=== PATIENT | male | born 1970 | race African-American/Black ===

== ENCOUNTER 2016-09-30 17:43 | Emergency (ER) | payer MEDICAID, OTHER ==
[~2016-09-30] VITALS: Ht 182.9 cm; Wt 117.9 kg
[~2016-09-30 17:43] MED LIST: ACETAMINOPHEN-1 EAC1 ORAL; ALBUTEROL SULF8.5 GM INH; ASPIRIN-LOW81 MG ORAL; ATIVAN1 MG ORAL; ATORVASTATIN CA10 MG ORAL; BACITRACIN15 GM TOPIC; BACTRIM-DS1 EA ORAL; BENTYL10 MG ORAL; COLACE100 MG ORAL; COLCHICINE0.6 M1 PO; DICYCLOMINE HCL10 MG PO; FLONASE1 SPRAYS NASAL; IBUPROFEN600 MG ORAL; LISINOPRIL20 MG ORAL; METFORMIN HCL500 M1 ORAL; METOPROLOL TART25 MG ORAL; NORCO 5-325 TA1 EACH ORAL; ONDANSETRON ODT4 MG ORAL; PROMETHAZINE V237 ML ORAL; TESSALON PERLE100 M2 ORAL; TRAMADOL HCL50 MG ORAL; ZITHROMAX250 MG ORAL; ZOFRAN4 M1 ORAL; ZYRTEC10 MG ORAL
[2016-09-30] MEDS ORDERED: LORazepam Inj 2mg/ml 1ml IV ONE (18:30)
[2016-09-30] MEDS ORDERED: Famotidine 20 MG/ 2ML VIAL IVP ONE (18:30)
[2016-09-30] MEDS ORDERED: Morphine Sulfate 4mg/ml Inj IVP ONE (18:30)
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
[2016-09-30 18:50] LABS: BASOPHILS % (AUTO) 3.3 % (0.0-2.0); EOSINOPHILS % (AUTO) 0.9 % (0.0-3.0); LYMPHOCYTES % (AUTO) 36.8 % (20.0-45.0); MEAN CORPUSCULAR VOLUME 97 FL (80-99); MEAN PLATELET VOLUME 6.3 FL (6.5-10.1); MONOCYTES % (AUTO) 15.5 % (1.0-10.0); NEUTROPHILS % (AUTO) 43.5 % (45.0-75.0); PLATELET COUNT 271 K/UL (150-450); RED BLOOD COUNT 5.09 M/UL (4.70-6.10); RED CELL DISTRIBUTION WIDTH 14.6 % (11.6-14.8); WHITE BLOOD COUNT 8.1 K/UL (4.8-10.8)
[2016-09-30 18:59] LABS: ALANINE AMINOTRANSFERASE 40 U/L (3-41); ALBUMIN/GLOBULIN RATIO 1.1 (1.0-2.7); ALCOHOL 392 mg/dL; ANION GAP 18 (5-15); ASPARTATE AMINO TRANSFERASE 41 U/L (5-40); CALCIUM 8.5 mg/dL (8.6-10.2); CARBON DIOXIDE 24 mEQ/L (20-30); CHLORIDE 101 mEQ/L (98-107); CREATININE 1.2 mg/dL (0.7-1.2); GLOMERULAR FILTRATION RATE > 60 mL/min (>60); HEMOLYSIS 7; POTASSIUM 3.9 mEQ/L (3.4-4.9); SODIUM 143 mEQ/L (135-145); TOTAL PROTEIN 8.1 g/dL (6.6-8.7)
[2016-09-30 19:03] VITALS: BP 109/59
[2016-09-30] MEDS ORDERED: ATORVASTATIN CA80 MG ORAL (20:41)
[2016-09-30] MEDS ORDERED: LISINOPRIL5 MG ORAL (20:41)
[2016-09-30] MEDS ORDERED: IBUPROFEN600 MG ORAL (20:41)
[2016-09-30 21:03] VITALS: BP 112/76
[2016-09-30] MEDS ORDERED: Zolpidem 5mg tab ORAL PRN (22:00)
[2016-09-30] MEDS ORDERED: LORazepam Inj 2mg/ml 1ml IV PRN (22:00)
[2016-09-30] MEDS ORDERED: chlordiazePOXIDE 25mg Cap ORAL PRN (22:00)
[2016-09-30] MEDS ORDERED: Mylanta II UD 30ml ORAL PRN (22:00)
[2016-09-30] MEDS ORDERED: Miralax 17gm pkt ORAL PRN (22:00)
[2016-09-30] MEDS ORDERED: Morphine Sulfate 2mg/ml Inj IVP PRN (22:00)
[2016-09-30 23:03] VITALS: BP 125/62
[2016-10-01] MEDS ORDERED: Thiamine HCl 100 MG in D5W 110 ML IVPB SCH ×2
[2016-10-01] MEDS ORDERED: Folic Acid 1 MG, Magnesium Sulfate 2,000 MG, Multivitamin - 12 Injection 10 ML in NS w/... IV SCH ×4
[2016-10-01] MEDS ORDERED: Morphine Sulfate 2mg/ml Inj ONE (00:14)
[2016-10-01 00:48] VITALS: BP 105/69
[2016-10-01 01:03] VITALS: BP 105/69
[2016-10-01] MEDS ORDERED: Heparin 5000 units/ml inj SUBQ SCH (09:00)
[2016-10-01] MEDS ORDERED: Lisinopril 10mg tab ORAL SCH (09:00)
[2016-10-01] MEDS ORDERED: Aspirin EC 81mg tab ORAL SCH (09:00)
[2016-10-01] MEDS ORDERED: Metoprolol 25mg tab ORAL SCH (09:00)
[2016-10-01] MEDS ORDERED: Atorvastatin 80mg tab ORAL SCH (21:00)
== END 2016-10-01 01:03 | disposition short-term general hospital (02) ==
LOC: EDBD 17:43 → EMR 18:23 → EDBEDREQ 20:27 → EMR 10-01 01:03
DX: R10.13 Epigastric pain (principal); F10.129 Alcohol abuse with intoxication, unspecified; K29.20 Alcoholic gastritis without bleeding; E11.9 Type 2 diabetes mellitus without complications; I10 Essential (primary) hypertension
CPT/HCPCS: 36415; 80053; 80300; 82550; 85025; 96360; 96374; 96375; 99285; G0480; J2270; J2405; S0028; 80329

== ENCOUNTER 2016-10-11 20:07 | Inpatient (IN) | payer MEDICAID, OTHER ==
[~2016-10-11] VITALS: Ht 182.9 cm; Wt 133.8 kg
[~2016-10-11 20:07] MED LIST changes: +ATORVASTATIN CA80 MG ORAL; +EPINEPHrine 1mg/10ml carp IV ONE; +LISINOPRIL5 MG ORAL; +Sodium Bicarbonate 8.4% 50ml Carp ONE
[2016-10-11 20:15] VITALS: BP 161/77
[2016-10-11] MEDS ORDERED: EPINEPHrine 1mg/1ml Amp SUBQ ONE (20:15)
[2016-10-11] MEDS ORDERED: Solu-MEDROL 125mg Inj IVP ONE (20:15)
[2016-10-11 21:07] LABS: BASOPHILS % (AUTO) 1.6 % (0.0-2.0); EOSINOPHILS % (AUTO) 1.3 % (0.0-3.0); LYMPHOCYTES % (AUTO) 22.2 % (20.0-45.0); MEAN CORPUSCULAR HEMOGLOBIN 33.3 PG (27.0-31.0); MEAN CORPUSCULAR HGB CONC 33.7 G/DL (32.0-36.0); MEAN CORPUSCULAR VOLUME 99 FL (80-99); MEAN PLATELET VOLUME 9.1 FL (6.5-10.1); NEUTROPHILS % (AUTO) 64.9 % (45.0-75.0); PLATELET COUNT 112 K/UL (150-450); RED BLOOD COUNT 4.08 M/UL (4.70-6.10); RED CELL DISTRIBUTION WIDTH 14.6 % (11.6-14.8); WHITE BLOOD COUNT 9.3 K/UL (4.8-10.8)
[2016-10-11 21:11] LABS: TROPONIN I < 0.30 ng/mL (<=0.30)
[2016-10-11 21:16] LABS: ALANINE AMINOTRANSFERASE 55 U/L (3-41); ALBUMIN/GLOBULIN RATIO 0.8 (1.0-2.7); ANION GAP 18 (5-15); ASPARTATE AMINO TRANSFERASE 36 U/L (5-40); CALCIUM 8.6 mg/dL (8.6-10.2); CARBON DIOXIDE 22 mEQ/L (20-30); CHLORIDE 96 mEQ/L (98-107); CREATININE 1.1 mg/dL (0.7-1.2); GLOMERULAR FILTRATION RATE > 60 mL/min (>60); HEMOLYSIS 19; SODIUM 136 mEQ/L (135-145); TOTAL PROTEIN 7.3 g/dL (6.6-8.7)
[2016-10-11] MEDS ORDERED: Racemic EPINEPHrine 2.25% 0.5ml HHN ONE (21:30)
[2016-10-11] MEDS ORDERED: Famotidine 20 MG/ 2ML VIAL IVP ONE (21:30)
[2016-10-11 22:15] VITALS: BP 170/81
[2016-10-11] MEDS ORDERED: LORazepam Inj 2mg/ml 1ml IV PRN (22:15)
[2016-10-11] MEDS ORDERED: Promethazine/Codeine 5ml UD ORAL PRN (22:15)
[2016-10-11] MEDS ORDERED: Morphine Sulfate 2mg/ml Inj IVP PRN (22:15)
[2016-10-11] MEDS ORDERED: DuoNeb 0.5-3(2.5)mg/3ml neb HHN PRN (22:15)
[2016-10-11] MEDS ORDERED: Nitroglycerin Subl 0.4mg tab (Bottle Of 25) SL PRN (22:15)
[2016-10-11] MEDS ORDERED: Propofol 10mg/ml 20ml IV ONE (22:45)
[2016-10-11] MEDS ORDERED: EPINEPHrine 1mg/10ml carp IV ONE ×2 (23:00→23:28)
[2016-10-11 23:15] VITALS: BP 158/85
[2016-10-11] MEDS ORDERED: Unasyn 3gm Inj ONE (23:34)
[2016-10-11] MEDS ORDERED: DOPamine 400mg/250ml 250 ML IV ONE (23:54)
[2016-10-12] VITALS (24 sets, daily range): BP systolic 117–188; BP diastolic 39–103
[2016-10-12] MEDS ORDERED: Surgicel 4in x 8in TOPIC ONE (00:07)
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
[2016-10-12] MEDS: Solu-MEDROL 125mg Inj IV SCH ×4 (01:28→18:08)
[2016-10-12 01:45] LABS: ABG BASE EXCESS -11.3; ABG PCO2 74.5 mmHg (35.0-45.0)
[2016-10-12 01:46] LABS: MEAN CORPUSCULAR HEMOGLOBIN 30.8 PG (27.0-31.0); MEAN CORPUSCULAR HGB CONC 31.6 G/DL (32.0-36.0); MEAN CORPUSCULAR VOLUME 97 FL (80-99); MEAN PLATELET VOLUME 8.6 FL (6.5-10.1); PLATELET COUNT 177 K/UL (150-450); RED CELL DISTRIBUTION WIDTH 14.4 % (11.6-14.8)
[2016-10-12 01:46] LABS: ABG ALLEN TEST POSITIVE
[2016-10-12 01:48] LABS: WHITE BLOOD COUNT 27.2 K/UL (4.8-10.8)
[2016-10-12 01:58] LABS: ALANINE AMINOTRANSFERASE 55 U/L (3-41); ALBUMIN/GLOBULIN RATIO 0.8 (1.0-2.7); ANION GAP 21 (5-15); ASPARTATE AMINO TRANSFERASE 61 U/L (5-40); CALCIUM 7.5 mg/dL (8.6-10.2); CARBON DIOXIDE 18 mEQ/L (20-30); CHLORIDE 95 mEQ/L (98-107); CREATININE 1.4 mg/dL (0.7-1.2); GLOMERULAR FILTRATION RATE > 60 mL/min (>60); HEMOLYSIS 13; POTASSIUM 4.5 mEQ/L (3.4-4.9); SODIUM 134 mEQ/L (135-145); TOTAL PROTEIN 6.5 g/dL (6.6-8.7)
[2016-10-12 04:30] LABS: PROTHROMBIN TIME 9.9 SEC (9.30-11.50)
[2016-10-12] MEDS ORDERED: Lidocaine 1% 10mg/ml/EPI 0.01mg/ml 50ml INJ ONE (05:00)
[2016-10-12 05:28] LABS: BAND NEUTROPHILS % (MANUAL) 12 % (0-8); BASOPHILS % (MANUAL) 0 % (0-2); EOSINOPHILS % (MANUAL) 0 % (0-3); LYMPHOCYTES % (MANUAL) 17 % (20-45); NEUTROPHILS % (MANUAL) 68 % (45-75); PLATELET ESTIMATE ADEQUATE; PLATELET MORPHOLOGY NORMAL; TOTAL CELLS COUNTED 100
[2016-10-12] MEDS: NovoLOG Insulin Flexpen SUBQ SCH ×4 (06:30→20:35)
--- NOTE | 2016-10-12 07:09 | Operative Note - Dictated ---
DATE OF OPERATION: 10/12/2016 Time: Approximately 4:30 a.m. SURGEON: Shahbaz Arriola M.D. ASSISTANT TO THE VICE PRESIDENT: None. ANESTHESIA: The patient is intubated. INDICATION FOR SURGERY: A patient, who had an emergency cricothyroidotomy for airway obstruction secondary to an allergic reaction of some sort, which at this time is unknown. I was called approximately 45 minutes ago to come and see this patient, who had a emergency trach in the emergency room with bleeding that they were unable to control. They had packed it, held pressure, not all laboratories are back yet, so we are not sure of the . PREOPERATIVE DIAGNOSIS: Bleeding in a fresh trach site. POSTOPERATIVE DIAGNOSIS: Bleeding in a fresh trach site. FINDINGS: Venous bleeder in the left side of the wound. PROCEDURE: Control of bleeding as an emergency in the neck secondary to an emergency trach, which saved the patient's life, although he is breathing on his own, his level of response is unknown at this time. TECHNIQUE: The patient was prepped and draped in usual manner at the bedside in the emergency room. I then was able to localize the bleeder on the left side of the wound approximately 0.5 inch down. This was clamped and tied with two 4-0 Vicryl sutures on either end. Then, packed with iodoform gauze. He was watched for about 10 minutes and there did not appeared to be any significant bleeding. There was no consent as this was in the emergency, although both the ER doctor and I were here and will consent. Finally, the sponge and needle count was correct. EBL: 10 mL. COUNTS: None. DRAINS: None. Please note, that there is a #6 endotracheal tube in the neck, not through the mouth. The patient is stable and paralyzed. It has been recommended to keep the patient paralyzed for the time being to reduce friction in the area. Shahbaz Arriola M.D. DR: ISABELLA JOB#: [id number] CC:
[2016-10-12 07:16] LABS: MEAN CORPUSCULAR HEMOGLOBIN 30.4 PG (27.0-31.0); MEAN CORPUSCULAR HGB CONC 30.1 G/DL (32.0-36.0); MEAN CORPUSCULAR VOLUME 101 FL (80-99); MEAN PLATELET VOLUME 9.3 FL (6.5-10.1); PLATELET COUNT 127 K/UL (150-450); RED BLOOD COUNT 4.64 M/UL (4.70-6.10); RED CELL DISTRIBUTION WIDTH 15.3 % (11.6-14.8); WHITE BLOOD COUNT 19.1 K/UL (4.8-10.8)
--- NOTE | 2016-10-12 07:19 | Consultation ---
DATE OF CONSULTATION: 10/12/2016 EMERGENCY HEAD AND NECK SURGERY CONSULT CONSULTING PHYSICIAN: Shahbaz Arriola M.D. REQUESTING PHYSICIAN: ER staff at [facility]. INDICATION FOR CONSULTATION: The patient had an emergency trach, which basically saved his life secondary to anaphylaxis of some sort with airway swelling. He has bleeding from his trach and they have been unable to stop it. They called me and I came in from home. PAST MEDICAL HISTORY: Is incomplete, but he has hypertension, on lisinopril. He has a large ventral hernia, some sort of exploration unknown at this time, which is old. He has diabetes. PHYSICAL EXAMINATION: NECK: He has a small hole with a #6 endotracheal tube placed in his neck. Bleeding site was found. OP note dictated. The patient is now stable, will be admitted into the intensive care unit, and will be transferred to his appropriate insurance based hospital as determined once stable. Thank you very much for asking my opinion in the care and treatment of this patient. Shahbaz Arriola M.D. DR: ISABELLA JOB#: [id number] CC:
[2016-10-12 07:34] LABS: ANISOCYTOSIS 1+; BAND NEUTROPHILS % (MANUAL) 5 % (0-8); BASOPHILS % (MANUAL) 0 % (0-2); EOSINOPHILS % (MANUAL) 0 % (0-3); LYMPHOCYTES % (MANUAL) 2 % (20-45); MACROCYTES 1+; NEUTROPHILS % (MANUAL) 89 % (45-75); PLATELET ESTIMATE DECREASED; PLATELET MORPHOLOGY NORMAL; TOTAL CELLS COUNTED 100
[2016-10-12 07:41] LABS: ABG BASE EXCESS -5.4
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
--- NOTE | 2016-10-12 08:52 | Emergency Room Report ---
Physical Exam Asked to start CVP. Patient post arrest and cricothyrotomy. [place] to be JUAN RAMON inhibitor reaction. FFP infused. Question of ARDS. Propofol infusing. Myoclonic jerking. Last 24 Hour Vital Signs Date Time Temp Pulse Resp B/P Pulse Ox O2 Delivery O2 Flow Rate FiO2 10/12/16 08:00 83 28 125/55 100 15.0 60 10/12/16 06:26 98.3 89 31 130/55 100 Mechanical Ventilator 10/12/16 06:15 98.0 88 30 129/55 100 Mechanical Ventilator 10/12/16 06:11 98.1 91 30 122/39 100 Mechanical Ventilator 10/12/16 06:11 98.1 91 29 10/12/16 05:04 99 23 100 10/12/16 05:03 100 10/12/16 04:35 23 10/12/16 04:30 23 10/12/16 04:15 98.0 105 27 126/61 96 Mechanical Ventilator 10/12/16 03:30 113 30 100 10/12/16 03:15 24 10/12/16 03:15 98.4 109 27 126/77 96 Mechanical Ventilator 10/12/16 03:08 15 10/12/16 02:51 24 10/12/16 02:46 24 10/12/16 02:41 18 10/12/16 02:15 98.4 128 24 117/60 97 Mechanical Ventilator 10/12/16 01:15 98.4 124 22 142/68 100 Mechanical Ventilator 10/12/16 00:50 100 10/12/16 00:36 132 20 100 10/12/16 00:15 98.4 120 24 178/84 100 Mechanical Ventilator 10/11/16 23:15 98.2 111 29 158/85 100 Mechanical Ventilator 10/11/16 22:15 98.1 82 16 170/81 100 Room Air 10/11/16 21:54 92 18 99 Room Air 10/11/16 21:53 92 18 Room Air 10/11/16 20:15 98.4 89 15 161/77 100 Room Air 10/11/16 20:13 98.4 88 15 161/77 100 Room Air Eyes: bilateral eye Scleral Injection, bilateral eye abnormal EOM - Doll's eyes ENT: moist mucus membranes, other - tongue and lip swelling Neck: other - cricothyrotomy Respiratory: crackles, chest symmetrical Cardiovascular #1: regular rate, rhythm Gastrointestinal: other - post surgical changes, overweight Genitourinary: normal inspection Musculoskeletal: other - flaccid Neurologic: other - myclonic jerks, unresponsive to pain Psychiatric: other - comatose Skin: other - prior grafts and surgical changes abdomen Central Line Central Line : Consent: Emergent Central Line Lumen: triple Maximal Sterile Barrier Tech: yes cap, yes mask, yes sterile gown, yes sterile gloves, yes large sterile sheet, yes hand hygiene, yes chlorhexidine prep Central Line Postion: femoral (R) Anesthesia: none Complications: none Central Line Post Position: sutured, good blood return Attempts: One Patient Tolerated: Well Complications: None Progress EBL = 7 cc Medical Decision Making Diagnostic Impression: Primary Impression: Angioedema Additional Impressions: Tracheostomy hemorrhage Cardiac arrest ER Course CVP indicated. See procedure note. CVP without complication. Prognosis poor. Rhythm Strip Diag. Results EP Interpretation: yes Rhythm: NSR, no PVC's, no ectopy Last Vital Signs Date Time Temp Pulse Resp B/P Pulse Ox O2 Delivery O2 Flow Rate FiO2 10/12/16 08:00 83 28 125/55 100 15.0 60 10/12/16 06:26 98.3 Mechanical Ventilator Status: unchanged Disposition: ADMITTED INPATIENT Condition: Critical Referrals: [facility],REFERRING (PCP) Kurt Smalls M.D. October 12, 2016 08:52
[2016-10-12] MEDS ORDERED: Zemuron 50mg/5ml Inj IV ONE (09:39)
[2016-10-12] MEDS ORDERED: Succinylcholine 20mg/ml 10ml vial ONE (09:39)
[2016-10-12] MEDS ORDERED: Etomidate 40mg/20ml Inj IV ONE (09:39)
[2016-10-12] MEDS ORDERED: NovoLOG Insulin Flexpen SUBQ SCH (11:30)
[2016-10-12] MEDS ORDERED: Morphine Sulfate 2mg/ml Inj IVP PRN (11:32)
[2016-10-12] MEDS ORDERED: Enalaprilat 2.5mg/2ml Inj IV PRN (11:45)
[2016-10-12] MEDS: Heparin 5000 units/ml inj SUBQ SCH ×2 (12:00→20:34)
[2016-10-12] MEDS ORDERED: Metoprolol 5mg/5ml Inj IVP PRN ×3 (12:00→12:09)
[2016-10-12] MEDS ORDERED: Morphine Sulfate 4mg/ml Inj IVP PRN (12:00)
[2016-10-12] MEDS: Pantoprazole Inj IV SCH (12:20)
--- NOTE | 2016-10-12 12:25 | Consultation ---
Consult Note Assessment/Plan ID [facility] # [id number] RASHID BRENNER M.D. October 12, 2016 12:25
[2016-10-12] MEDS ORDERED: Vancomycin 1.5 GM in D5W 325 ML IVPB ONE (13:00)
--- NOTE | 2016-10-12 13:35 | Diagnostic Imaging Report ---
Indications: Shortness of breath, intubation Technique: Portable AP chest Findings: Comparison: 02/16/16 Tracheostomy has been performed, through which an endotracheal tube has been placed, tip within 1 cm of the tracheal jeana, near the origin of the right mainstem bronchus. Gas is present within the soft tissues of the neck bilaterally. Nasogastric tube has been placed, tip off the edge of the image, well below the diaphragm. Pulmonary inflation has decreased. Diffuse bilateral hazy opacities have developed throughout both lungs. Cardiac silhouette now partially obscured. Pulmonary vasculature obscured. No definite pleural abnormality. IMPRESSION: Performance of tracheostomy with placement of endotracheal tube, tip low in position, recommend withdrawal 1-2 cm. Bilateral neck subcutaneous kidneys emphysema likely secondary to performance of tracheostomy Diffuse bilateral pulmonary atelectasis versus edema versus pneumonia Nasogastric tube well below diaphragm
--- NOTE | 2016-10-12 13:35 | Diagnostic Imaging Report ---
Indications: Intubation Technique: Portable AP chest Findings: Comparison: 10/11/2016 Endotracheal tube placed via tracheostomy remains in place, tip now at the origin of the right mainstem bronchus. Nasogastric tube remains in place, distal end off the edge of the image, well below the diaphragm. Pulmonary inflation has modestly improved with persistence patchy airspace consolidation in the right upper and lower lung zones, lesser hazy opacity in the left upper lung zone. Left costophrenic angle now blunted; right sharp. Left retrocardiac region appears opacified. Cardiac silhouette remains partially obscured. Gas in the cervical soft tissues no longer demonstrated. IMPRESSION: Persistent low position of endotracheal tube placed via tracheostomy, recommend withdrawal 2-3 cm Improvement in pulmonary inflation with persistent parenchymal opacities--atelectasis versus edema versus pneumonia Development of subsegmental atelectasis left lung base with or without small pleural effusion Resolution of neck subcutaneous emphysema
--- NOTE | 2016-10-12 14:24 | Cardiology Report ---
APPROVED REPORT EKG Measurement Heart [id number] Normal sinus rhythm Normal ECG
--- NOTE | 2016-10-12 14:34 | Neurology Progress Note ---
Objective Physical Exam Last Vital Signs Date Time Temp Pulse Resp B/P Pulse Ox O2 Delivery O2 Flow Rate FiO2 10/12/16 13:12 152 168/94 10/12/16 12:34 36 60 10/12/16 08:00 100 15.0 10/12/16 06:26 98.3 Mechanical Ventilator Laboratory Tests Test 10/11/16 20:35 10/12/16 00:02 10/12/16 01:24 10/12/16 01:33 White Blood Count 9.3 K/UL (4.8-10.8) 27.2 K/UL (4.8-10.8) #*H Red Blood Count 4.08 M/UL (4.70-6.10) L 4.80 M/UL (4.70-6.10) Hemoglobin 13.6 G/DL (14.2-18.0) L 14.8 G/DL (14.2-18.0) Hematocrit 40.3 % (42.0-52.0) L 46.6 % (42.0-52.0) Mean Corpuscular Volume 99 FL (80-99) 97 FL (80-99) Mean Corpuscular Hemoglobin 33.3 PG (27.0-31.0) H 30.8 PG (27.0-31.0) Mean Corpuscular Hemoglobin Concent 33.7 G/DL (32.0-36.0) 31.6 G/DL (32.0-36.0) L Red Cell Distribution Width 14.6 % (11.6-14.8) 14.4 % (11.6-14.8) Platelet Count 112 K/UL (150-450) L 177 K/UL (150-450) # Mean Platelet Volume 9.1 FL (6.5-10.1) 8.6 FL (6.5-10.1) Neutrophils (%) (Auto) 64.9 % (45.0-75.0) % (45.0-75.0) Lymphocytes (%) (Auto) 22.2 % (20.0-45.0) % (20.0-45.0) Monocytes (%) (Auto) 10.0 % (1.0-10.0) % (1.0-10.0) Eosinophils (%) (Auto) 1.3 % (0.0-3.0) % (0.0-3.0) Basophils (%) (Auto) 1.6 % (0.0-2.0) % (0.0-2.0) Sodium Level 136 mEQ/L (135-145) 134 mEQ/L (135-145) L Potassium Level 4.0 mEQ/L (3.4-4.9) 4.5 mEQ/L (3.4-4.9) Chloride Level 96 mEQ/L (98-107) L 95 mEQ/L (98-107) L Carbon Dioxide Level 22 mEQ/L (20-30) 18 mEQ/L (20-30) L Anion Gap 18 (5-15) H 21 (5-15) H Blood Urea Nitrogen 8 mg/dL (7-23) 10 mg/dL (7-23) Creatinine 1.1 mg/dL (0.7-1.2) 1.4 mg/dL (0.7-1.2) H Estimat Glomerular Filtration Rate > 60 mL/min (>60) > 60 mL/min (>60) Glucose Level 117 mg/dL (74-106) H 307 mg/dL (74-106) #H Calcium Level 8.6 mg/dL (8.6-10.2) 7.5 mg/dL (8.6-10.2) L Total Bilirubin 0.4 mg/dL (0.0-1.2) 0.3 mg/dL (0.0-1.2) Aspartate Amino Transf (AST/SGOT) 36 U/L (5-40) 61 U/L (5-40) H Alanine Aminotransferase (ALT/SGPT) 55 U/L (3-41) H 55 U/L (3-41) H Alkaline Phosphatase 124 U/L (40-129) 137 U/L (40-129) H Troponin I < 0.30 ng/mL (<=0.30) Total Protein 7.3 g/dL (6.6-8.7) 6.5 g/dL (6.6-8.7) L Albumin 3.3 g/dL (3.5-5.2) L 2.9 g/dL (3.5-5.2) L Globulin 4.0 g/dL 3.6 g/dL Albumin/Globulin Ratio 0.8 (1.0-2.7) L 0.8 (1.0-2.7) L Prothrombin Time 9.9 SEC (9.30-11.50) Prothromb Time International Ratio 1.0 (0.9-1.1) Activated Partial Thromboplast Time 27 SEC (23-33) Differential Total Cells Counted 100 Neutrophils % (Manual) 68 % (45-75) Lymphocytes % (Manual) 17 % (20-45) L Monocytes % (Manual) 3 % (1-10) Eosinophils % (Manual) 0 % (0-3) Basophils % (Manual) 0 % (0-2) Band Neutrophils 12 % (0-8) H Platelet Estimate Adequate Platelet Morphology Normal Red Blood Cell Morphology Normal Arterial Blood pH 7.059 (7.350-7.450) Arterial Blood Partial Pressure CO2 74.5 mmHg (35.0-45.0) *H Arterial Blood Partial Pressure O2 78.2 mmHg (75.0-100.0) Arterial Blood HCO3 20.6 mmol/L (22.0-26.0) L Arterial Blood Oxygen Saturation 89.7 % (92.0-98.0) L Arterial Blood Base Excess -11.3 Jet Test Positive Test 10/12/16 06:58 10/12/16 07:22 White Blood Count 19.1 K/UL (4.8-10.8) H Red Blood Count 4.64 M/UL (4.70-6.10) L Hemoglobin 14.1 G/DL (14.2-18.0) L Hematocrit 46.8 % (42.0-52.0) Mean Corpuscular Volume 101 FL (80-99) H Mean Corpuscular Hemoglobin 30.4 PG (27.0-31.0) Mean Corpuscular Hemoglobin Concent 30.1 G/DL (32.0-36.0) L Red Cell Distribution Width 15.3 % (11.6-14.8) H Platelet Count 127 K/UL (150-450) L Mean Platelet Volume 9.3 FL (6.5-10.1) Neutrophils (%) (Auto) % (45.0-75.0) Lymphocytes (%) (Auto) % (20.0-45.0) Monocytes (%) (Auto) % (1.0-10.0) Eosinophils (%) (Auto) % (0.0-3.0) Basophils (%) (Auto) % (0.0-2.0) Differential Total Cells Counted 100 Neutrophils % (Manual) 89 % (45-75) H Lymphocytes % (Manual) 2 % (20-45) L Monocytes % (Manual) 4 % (1-10) Eosinophils % (Manual) 0 % (0-3) Basophils % (Manual) 0 % (0-2) Band Neutrophils 5 % (0-8) Platelet Estimate Decreased L Platelet Morphology Normal Anisocytosis 1+ Macrocytosis 1+ Arterial Blood pH 7.320 (7.350-7.450) Arterial Blood Partial Pressure CO2 41.0 mmHg (35.0-45.0) Arterial Blood Partial Pressure O2 551.0 mmHg (75.0-100.0) H Arterial Blood HCO3 20.4 mmol/L (22.0-26.0) L Arterial Blood Oxygen Saturation 99.5 % (92.0-98.0) H Arterial Blood Base Excess -5.4 Jet Test Impression/Recommendations Problems: (1) post anoxic encephalopathy (2) s/p respiratory arrest (3) r/o seizure activity (4) Angioedema (5) Acute respiratory failure (6) morbid obesity (7) CAD (coronary artery disease) (8) Tracheostomy hemorrhage Status: unchanged Recommendations # [id number] WAI DE LUNA October 12, 2016 14:34
[2016-10-12] MEDS: levETIRAcetam 500 MG in D5W 110 ML IV SCH ×2 (16:00→22:33)
[2016-10-12] MEDS: LORazepam Inj 2mg/ml 1ml IV PRN ×2 (16:41→20:14)
[2016-10-12] MEDS: Thiamine HCl 100 MG in D5W 55 ML IVPB SCH (16:48)
[2016-10-12] MEDS: Metoprolol 5mg/5ml Inj IVP PRN ×2 (16:54→22:32)
[2016-10-12] MEDS: Metoprolol Tartrate 12.5mg TAB ORAL SCH (20:08)
[2016-10-13] VITALS (24 sets, daily range): BP systolic 128–174; BP diastolic 56–86
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
[2016-10-13] MEDS: Solu-MEDROL 125mg Inj IV SCH ×3 (00:12→21:09)
[2016-10-13] MEDS: Vancomycin 1gm/D5W 275ml IVPB SCH ×4 (00:42→13:02)
[2016-10-13 05:31] LABS: MEAN CORPUSCULAR HEMOGLOBIN 30.8 PG (27.0-31.0); MEAN CORPUSCULAR HGB CONC 31.1 G/DL (32.0-36.0); MEAN CORPUSCULAR VOLUME 99 FL (80-99); MEAN PLATELET VOLUME 8.1 FL (6.5-10.1); PLATELET COUNT 142 K/UL (150-450); RED BLOOD COUNT 3.72 M/UL (4.70-6.10); RED CELL DISTRIBUTION WIDTH 15.2 % (11.6-14.8); WHITE BLOOD COUNT 19.4 K/UL (4.8-10.8)
[2016-10-13 05:46] LABS: ALANINE AMINOTRANSFERASE 57 U/L (3-41); ALBUMIN/GLOBULIN RATIO 0.9 (1.0-2.7); ANION GAP 18 (5-15); ASPARTATE AMINO TRANSFERASE 125 U/L (5-40); CALCIUM 8.1 mg/dL (8.6-10.2); CARBON DIOXIDE 22 mEQ/L (20-30); CHLORIDE 99 mEQ/L (98-107); CREATININE 1.5 mg/dL (0.7-1.2); GLOMERULAR FILTRATION RATE > 60 mL/min (>60); HEMOLYSIS 4; MAGNESIUM 1.4 mg/dL (1.7-2.5); PHOSPHORUS 2.5 mg/dL (2.5-4.8); POTASSIUM 4.1 mEQ/L (3.4-4.9); SODIUM 139 mEQ/L (135-145); TOTAL PROTEIN 7.1 g/dL (6.6-8.7)
[2016-10-13] MEDS: NovoLOG Insulin Flexpen SUBQ SCH ×3 (05:47→18:00)
[2016-10-13] MEDS: Metoprolol 5mg/5ml Inj IVP PRN ×2 (06:13→13:02)
[2016-10-13] MEDS: Pantoprazole Inj IV SCH (08:25)
[2016-10-13] MEDS: LORazepam Inj 2mg/ml 1ml IV PRN (08:25)
[2016-10-13] MEDS: Heparin 5000 units/ml inj SUBQ SCH (08:28)
[2016-10-13] MEDS: levETIRAcetam 500 MG in D5W 110 ML IV SCH ×2 (09:28→21:10)
[2016-10-13] MEDS: Metoprolol Tartrate 12.5mg TAB ORAL SCH (09:29)
[2016-10-13 09:40] LABS: BAND NEUTROPHILS % (MANUAL) 8 % (0-8); BASOPHILS % (MANUAL) 0 % (0-2); EOSINOPHILS % (MANUAL) 0 % (0-3); LYMPHOCYTES % (MANUAL) 6 % (20-45); NEUTROPHILS % (MANUAL) 82 % (45-75); PLATELET ESTIMATE DECREASED; PLATELET MORPHOLOGY NORMAL; TOTAL CELLS COUNTED 100
[2016-10-13 09:41] LABS: ANISOCYTOSIS 1+; MACROCYTES 1+
[2016-10-13] MEDS ORDERED: Artificial Tears 1.4% Op Soln BOTH EYES PRN (09:45)
--- NOTE | 2016-10-13 10:44 | Pulmonolgy Critical Care Note ---
Critical Care - Asmt/Plan Problems: (1) Acute respiratory failure (2) Angioedema (3) CAD (coronary artery disease) Respiratory: monitor respiratory rate, adjust FIO2, CXR Cardiac: continue to monitor HR/BP Renal: F/U I&O, increase IV fluid, check electrolytes Infectious Disease: check cultures, continue antibiotics Gastrointestinal: continue feedings/current rate Endocrine: monitor blood sugar, continue sliding scale insulin, other - decrease steroids Hematologic: transfuse if hgb<8.5 Neurologic: PRN Ativan, PRN Morphine, keep patient comfortable Affect: PRN ativan Prophylaxis: Protonix Notes Reviewed: research spec, renal Discussed with: nurses, consultants, case management managermedical center manager - Objective Last 24 Hour Vital Signs Date Time Temp Pulse Resp B/P Pulse Ox O2 Delivery O2 Flow Rate FiO2 10/13/16 10:00 102.7 122 24 151/71 98 Mechanical Ventilator 50 10/13/16 09:29 137 146/70 10/13/16 09:25 102.8 10/13/16 09:00 138 26 50 10/13/16 09:00 139 29 141/65 98 Mechanical Ventilator 50 10/13/16 08:00 102.9 140 24 137/61 100 Mechanical Ventilator 50 10/13/16 08:00 50 10/13/16 08:00 133 10/13/16 07:05 129 34 50 10/13/16 07:00 150 26 164/56 99 Mechanical Ventilator 50 10/13/16 06:13 147 174/86 10/13/16 06:00 147 26 174/86 98 Mechanical Ventilator 10/13/16 05:06 142 34 50 10/13/16 05:00 144 28 162/83 98 Mechanical Ventilator 10/13/16 04:00 50 10/13/16 04:00 143 10/13/16 04:00 100.3 143 33 165/79 98 Mechanical Ventilator 10/13/16 03:30 143 36 50 10/13/16 03:00 136 33 167/85 98 Mechanical Ventilator 10/13/16 02:00 132 35 159/75 100 Mechanical Ventilator 10/13/16 01:00 99.8 134 29 160/83 98 Mechanical Ventilator 10/13/16 00:56 133 33 50 10/13/16 00:00 138 10/13/16 00:00 138 33 166/72 100 Mechanical Ventilator 10/13/16 00:00 50 10/12/16 23:00 136 32 147/79 99 Mechanical Ventilator 10/12/16 22:53 125 31 50 10/12/16 22:32 143 150/72 10/12/16 22:00 141 32 150/72 99 Mechanical Ventilator 10/12/16 21:30 127 33 50 10/12/16 21:00 144 32 152/75 100 Mechanical Ventilator 10/12/16 20:08 146 160/65 10/12/16 20:00 100.8 148 33 160/65 100 Mechanical Ventilator 10/12/16 20:00 148 10/12/16 20:00 50 10/12/16 19:30 148 34 50 10/12/16 19:00 130 31 160/73 100 Mechanical Ventilator 10/12/16 18:00 101.2 138 31 167/77 100 Mechanical Ventilator 10/12/16 17:00 130 31 157/84 100 Mechanical Ventilator 10/12/16 16:54 152 178/88 10/12/16 16:49 154 34 60 10/12/16 16:00 60 10/12/16 16:00 117 10/12/16 16:00 101.4 141 31 168/88 100 Mechanical Ventilator 10/12/16 15:00 101.6 113 31 170/93 100 Mechanical Ventilator 10/12/16 15:00 113 31 118/61 100 Mechanical Ventilator 10/12/16 14:48 131 33 60 10/12/16 14:00 140 31 162/103 100 Mechanical Ventilator 10/12/16 13:12 152 168/94 10/12/16 13:00 101.5 132 31 168/94 100 Mechanical Ventilator 10/12/16 12:34 135 36 60 10/12/16 12:08 167 188/67 10/12/16 12:00 135 10/12/16 12:00 129 36 188/67 100 Mechanical Ventilator 10/12/16 11:38 174/99 10/12/16 11:00 101.8 125 35 175/101 100 Mechanical Ventilator 10/12/16 10:54 105 35 60 Status: awake Condition: critical HEENT: atraumatic Neck: full ROM Lungs: clear Heart: HR/BP stable, HR/BP unstable, regular Micro: Microbiology Date/Time Source Procedure Growth Status 10/12/16 19:15 Urine,Clean Catch Urine Culture - Preliminary NO GROWTH AFTER 24 HOURS Resulted Accucheck: 129 Critical Care - Subjective ROS Limited/Unobtainable: Yes ICU Day: 2 Intubation Day: 2 Condition: critical EKG Rhythm: Sinus Rhythm FI02: 50 Vent Support Breath Rate: 16 Vent Support Mode: AC Vent Tidal Volume: 600 Sputum Amount: Moderate PEEP: 8.0 PIP: 55 Fluids: NS 75 cc.hour I&O: Intake and Output 10/12/16 10/13/16 19:00 07:00 Intake Total 1398 ml 1290 ml Output Total 1220 ml 880 ml Balance 178 ml 410 ml Intake IV Total 1097 ml 1290 ml Blood Product 301 ml Output Urine Total 1220 ml 880 ml CXR: no change ET-Tube: 6.0 ET Position: 17 Labs: Laboratory Tests Test 10/13/16 04:20 White Blood Count 19.4 K/UL (4.8-10.8) H Red Blood Count 3.72 M/UL (4.70-6.10) L Hemoglobin 11.5 G/DL (14.2-18.0) L Hematocrit 36.8 % (42.0-52.0) L Mean Corpuscular Volume 99 FL (80-99) Mean Corpuscular Hemoglobin 30.8 PG (27.0-31.0) Mean Corpuscular Hemoglobin Concent 31.1 G/DL (32.0-36.0) L Red Cell Distribution Width 15.2 % (11.6-14.8) H Platelet Count 142 K/UL (150-450) L Mean Platelet Volume 8.1 FL (6.5-10.1) Neutrophils (%) (Auto) % (45.0-75.0) Lymphocytes (%) (Auto) % (20.0-45.0) Monocytes (%) (Auto) % (1.0-10.0) Eosinophils (%) (Auto) % (0.0-3.0) Basophils (%) (Auto) % (0.0-2.0) Differential Total Cells Counted 100 Neutrophils % (Manual) 82 % (45-75) H Lymphocytes % (Manual) 6 % (20-45) L Monocytes % (Manual) 4 % (1-10) Eosinophils % (Manual) 0 % (0-3) Basophils % (Manual) 0 % (0-2) Band Neutrophils 8 % (0-8) Platelet Estimate Decreased L Platelet Morphology Normal Anisocytosis 1+ Macrocytosis 1+ Sodium Level 139 mEQ/L (135-145) Potassium Level 4.1 mEQ/L (3.4-4.9) Chloride Level 99 mEQ/L (98-107) Carbon Dioxide Level 22 mEQ/L (20-30) Anion Gap 18 (5-15) H Blood Urea Nitrogen 21 mg/dL (7-23) Creatinine 1.5 mg/dL (0.7-1.2) H Estimat Glomerular Filtration Rate > 60 mL/min (>60) Glucose Level 139 mg/dL (74-106) #H Calcium Level 8.1 mg/dL (8.6-10.2) L Phosphorus Level 2.5 mg/dL (2.5-4.8) Magnesium Level 1.4 mg/dL (1.7-2.5) L Total Bilirubin 0.5 mg/dL (0.0-1.2) Aspartate Amino Transf (AST/SGOT) 125 U/L (5-40) H Alanine Aminotransferase (ALT/SGPT) 57 U/L (3-41) H Alkaline Phosphatase 55 U/L (40-129) Total Protein 7.1 g/dL (6.6-8.7) Albumin 3.5 g/dL (3.5-5.2) Globulin 3.6 g/dL Albumin/Globulin Ratio 0.9 (1.0-2.7) L THEO DONOHUE October 13, 2016 10:44
[2016-10-13 11:46] LABS: APPEARANCE,URINE SLIGHTLY CLOUDY; KETONES,URINE NEGATIVE (NEGATIVE); LEUKOCYTE ESTERASE ,URINE NEGATIVE (NEGATIVE); NITRITE,URINE NEGATIVE (NEGATIVE); PH,URINE 5 (4.5-8.0); PROTEIN,URINE 2+ (NEGATIVE); UROBILINOGEN,URINE NORMAL MG/DL (0.0-1.0)
[2016-10-13 12:01] LABS: URIC ACID 6.3 mg/dL (3.0-7.5)
[2016-10-13 12:33] LABS: BACTERIA,URINE FEW /HPF; SQUAMOUS EPITHELIAL CELL,UR OCCASIONAL /LPF (NONE/OCC); WBC,URINE 0-2 /HPF (0 - 0)
[2016-10-13 12:34] LABS: URIC ACID CRYSTALS,URINE FEW /LPF
[2016-10-13] MEDS ORDERED: Heparin 2000 units/Ns 1000ml INJ PRN (12:45)
[2016-10-13] MEDS ORDERED: Lidocaine 1% Plain 30 ml INJ PRN (12:45)
[2016-10-13] MEDS ORDERED: Sodium Bicarbonate 4% 2.4meq/5ml vial INJ PRN (12:45)
--- NOTE | 2016-10-13 13:48 | Diagnostic Imaging Report ---
Indication: Dyspnea Comparison: 10/12/16 A single view chest radiograph was obtained. Findings: Endotracheal tube is right at the jeana and should be pulled up slightly further. Heart size is stable. Central vascular congestion appears to have improved since the previous day. There is retrocardiac opacification that persists. Impression: Endotracheal tube at the jeana. This should be pulled up slightly. Persistent retrocardiac atelectasis versus pneumonia
--- NOTE | 2016-10-13 14:02 | Diagnostic Imaging Report ---
Indication:Elevated Bun and Creatinine. Technique: Grayscale and duplex Doppler imaging of the kidneys performed. Comparison: None Findings: The size, contour, and echogenicity of both kidneys are within normal limits. The right kidney is 13.4 CM. Left kidney 12.4 CM. There is no hydronephrosis. The IVC and urinary bladder are unremarkable. Palma catheter is noted. Impression: Negative
[2016-10-13] MEDS: Metoprolol 25mg tab ORAL SCH (15:17)
[2016-10-13] MEDS: Thiamine HCl 100 MG in D5W 55 ML IVPB SCH (16:00)
[2016-10-13 16:26] LABS: ABG PCO2 38.5 mmHg (35.0-45.0)
[2016-10-13 16:27] LABS: ABG ALLEN TEST POSITIVE
--- NOTE | 2016-10-13 17:43 | Neurology Progress Note ---
Interim History Interim History ROS Limited/Unobtainable: Yes Complaints: coma Events: sedated with MS,ativan Objective Physical Exam Last Vital Signs Date Time Temp Pulse Resp B/P Pulse Ox O2 Delivery O2 Flow Rate FiO2 10/13/16 17:20 98 18 50 10/13/16 17:00 97.7 139/58 100 Mechanical Ventilator 10/12/16 08:00 15.0 Laboratory Tests Test 10/13/16 04:20 10/13/16 11:00 10/13/16 16:18 White Blood Count 19.4 K/UL (4.8-10.8) H Red Blood Count 3.72 M/UL (4.70-6.10) L Hemoglobin 11.5 G/DL (14.2-18.0) L Hematocrit 36.8 % (42.0-52.0) L Mean Corpuscular Volume 99 FL (80-99) Mean Corpuscular Hemoglobin 30.8 PG (27.0-31.0) Mean Corpuscular Hemoglobin Concent 31.1 G/DL (32.0-36.0) L Red Cell Distribution Width 15.2 % (11.6-14.8) H Platelet Count 142 K/UL (150-450) L Mean Platelet Volume 8.1 FL (6.5-10.1) Neutrophils (%) (Auto) % (45.0-75.0) Lymphocytes (%) (Auto) % (20.0-45.0) Monocytes (%) (Auto) % (1.0-10.0) Eosinophils (%) (Auto) % (0.0-3.0) Basophils (%) (Auto) % (0.0-2.0) Differential Total Cells Counted 100 Neutrophils % (Manual) 82 % (45-75) H Lymphocytes % (Manual) 6 % (20-45) L Monocytes % (Manual) 4 % (1-10) Eosinophils % (Manual) 0 % (0-3) Basophils % (Manual) 0 % (0-2) Band Neutrophils 8 % (0-8) Platelet Estimate Decreased L Platelet Morphology Normal Anisocytosis 1+ Macrocytosis 1+ Sodium Level 139 mEQ/L (135-145) Potassium Level 4.1 mEQ/L (3.4-4.9) Chloride Level 99 mEQ/L (98-107) Carbon Dioxide Level 22 mEQ/L (20-30) Anion Gap 18 (5-15) H Blood Urea Nitrogen 21 mg/dL (7-23) Creatinine 1.5 mg/dL (0.7-1.2) H Estimat Glomerular Filtration Rate > 60 mL/min (>60) Glucose Level 139 mg/dL (74-106) #H Calcium Level 8.1 mg/dL (8.6-10.2) L Phosphorus Level 2.5 mg/dL (2.5-4.8) Magnesium Level 1.4 mg/dL (1.7-2.5) L Total Bilirubin 0.5 mg/dL (0.0-1.2) Aspartate Amino Transf (AST/SGOT) 125 U/L (5-40) H Alanine Aminotransferase (ALT/SGPT) 57 U/L (3-41) H Alkaline Phosphatase 55 U/L (40-129) Total Protein 7.1 g/dL (6.6-8.7) Albumin 3.5 g/dL (3.5-5.2) Globulin 3.6 g/dL Albumin/Globulin Ratio 0.9 (1.0-2.7) L Urine Color Pale yellow Urine Appearance Slightly cloudy Urine pH 5 (4.5-8.0) Urine Specific [place] 1.015 (1.005-1.035) Urine Protein 2+ (NEGATIVE) H Urine Glucose (UA) Negative (NEGATIVE) Urine Ketones Negative (NEGATIVE) Urine Occult Blood 4+ (NEGATIVE) H Urine Nitrite Negative (NEGATIVE) Urine Bilirubin Negative (NEGATIVE) Urine Urobilinogen Normal MG/DL (0.0-1.0) Urine Leukocyte Esterase Negative (NEGATIVE) Urine RBC 10-15 /HPF (0 - 0) H Urine WBC 0-2 /HPF (0 - 0) Urine Squamous Epithelial Cells Occasional /LPF Urine Uric Acid Crystals Few /LPF (NONE) H Urine Bacteria Few /HPF (NONE) Urine Eosinophils None seen Urine Osmolality Pending Urine Random Sodium 37 mmol/L Urine Random Chloride 46 mmol/L Urine Potassium Timed 39 mmol/L Plasma/Serum Osmolality Pending Uric Acid 6.3 mg/dL (3.0-7.5) Total Creatine Kinase 3672 U/L (38-174) H Thyroid Stimulating Hormone (TSH) 1.120 uIU/mL (0.300-4.500) Free Thyroxine 1.09 ng/dL (0.86-1.85) Free Triiodothyronine Pending Cortisol Pending Arterial Blood pH 7.356 (7.350-7.450) Arterial Blood Partial Pressure CO2 38.5 mmHg (35.0-45.0) Arterial Blood Partial Pressure O2 95.7 mmHg (75.0-100.0) Arterial Blood HCO3 21.1 mmol/L (22.0-26.0) L Arterial Blood Oxygen Saturation 96.3 % (92.0-98.0) Arterial Blood Base Excess -4.0 Jet Test Positive General: other - intubated, obese,no pressors, fluctuating SBP Head: atraumatic Neck: no rigidity Neurologic Exam Mental Status: other - coma no responce to pain Speech: other Language: other Cranial Nerve II: other Cranial Nerves III, IV, : other - P 3mm sluggish aom fixed Cranial Nerve V: other - none Cranial Nerve VII: no facial asymmetry Cranial Nerve VIII: other Cranial Nerve IX: other - no gag Cranial Nerve XI: other Cranial Nerve XII: other Motor System: other - flaccid, no involuntary movement Sensory: other Coordination: other Deep Tendon Reflexes: 0 ankle (L), 0 ankle (R), 0 bicep (L), 0 bicep (R), 0 brachioradialis (L), 0 brachioradialis (R), 0 knee (L), 0 knee (R), 0 tricep (L) , 0 tricep (R) Reflexes: mute plantar (L), mute plantar (R) Impression/Recommendations Problems: (1) post anoxic encephalopathy (2) s/p respiratory arrest (3) Angioedema (4) Acute respiratory failure (5) CAD (coronary artery disease) Status: unchanged Recommendations # [id number] EEG burst suppression pattern neuro -no change CT brain WAI DE LUNA October 13, 2016 17:43
[2016-10-13] MEDS: Minoxidil 2.5mg tab ORAL SCH (18:00)
--- NOTE | 2016-10-13 20:01 | Electroencephalogram ---
DATE OF PROCEDURE: 10/12/2016 REQUESTING PHYSICIAN: Ame Spencer M.D. HISTORY: This is a 46-year-old man who sustained anoxic encephalopathy following respiratory arrest, developing involuntary upper extremity and perioral jerking suspected to have seizure activities as this occurred following which a EEG was requested. The patient described as being semicomatose, poorly responsive, lethargic, and obtunded. Throughout the recording, background activity consisted of a low voltage regular delta slowing with generalized bursts of 5 to 6 hertz transients followed by few seconds of suppression, significant amount of sweat artifact were noted obscuring the recording. There was no significant amplitude asymmetry and there were no paroxysmal epileptiform activity noted. IMPRESSION: Normal EEG presenting with severe slowing and burst suppression pattern. COMMENT: 1. Above abnormality has a post prognostic side, indicating a severe global cerebral dysfunction. 2. Absence of paroxysmal epileptiform activities does not rule out seizure disorder. Donny Burr M.D. DR: JUDIT JOB#: [id number] CC:
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
[2016-10-14] VITALS (24 sets, daily range): BP systolic 114–144; BP diastolic 42–84
[2016-10-14] MEDS: Metoprolol 25mg tab ORAL SCH ×5 (00:02→23:55)
[2016-10-14] MEDS: NovoLOG Insulin Flexpen SUBQ SCH ×5 (00:03→23:56)
[2016-10-14] MEDS: Vancomycin 1gm/D5W 275ml IVPB SCH ×2 (01:50)
[2016-10-14 05:35] LABS: MEAN CORPUSCULAR HEMOGLOBIN 30.9 PG (27.0-31.0); MEAN CORPUSCULAR VOLUME 100 FL (80-99); PLATELET COUNT 153 K/UL (150-450); RED BLOOD COUNT 3.22 M/UL (4.70-6.10); RED CELL DISTRIBUTION WIDTH 15.2 % (11.6-14.8); WHITE BLOOD COUNT 18.9 K/UL (4.8-10.8)
[2016-10-14 05:56] LABS: ALANINE AMINOTRANSFERASE 45 U/L (3-41); ALBUMIN/GLOBULIN RATIO 0.9 (1.0-2.7); ANION GAP 11 (5-15); ASPARTATE AMINO TRANSFERASE 104 U/L (5-40); CALCIUM 7.7 mg/dL (8.6-10.2); CARBON DIOXIDE 25 mEQ/L (20-30); CHLORIDE 104 mEQ/L (98-107); GLOMERULAR FILTRATION RATE > 60 mL/min (>60); HEMOLYSIS 31; PHOSPHORUS 3.2 mg/dL (2.5-4.8); POTASSIUM 5.2 mEQ/L (3.4-4.9); SODIUM 140 mEQ/L (135-145); TOTAL PROTEIN 6.4 g/dL (6.6-8.7)
[2016-10-14 08:15] LABS: FREE TRIIODOTHYRONINE 2.1 pg/mL (2.0-4.4)
--- NOTE | 2016-10-14 08:33 | Diagnostic Imaging Report ---
Indications: DYSPNEA Technique: Portable AP chest Findings: Comparison: 10/13/16 The left hemithorax is now completely opacified with leftward shift of cardiomediastinal structures. Right lung inflation has increased. Linear density nevertheless noted in right lung base. Right costophrenic angle sharp. Tracheostomy tube withdrawn, tip now approximately 2 cm above jeana. Kinking of tube at tracheostomy site suggested. Nasogastric tube remains in place. IMPRESSION: Findings compatible with complete left lung collapse, suggesting central bronchial obstruction. Consider bronchoscopy for further evaluation. Better positioning of tracheostomy tube, though with suggestion of kinking at level of tracheostomy Findings discussed with Dr. Spencer by telephone at time of this dictation
[2016-10-14 09:06] LABS: ABG ALLEN TEST POSITIVE; ABG BASE EXCESS -2.4
[2016-10-14] MEDS: Minoxidil 2.5mg tab ORAL SCH (09:33)
[2016-10-14] MEDS: levETIRAcetam 500 MG in D5W 110 ML IV SCH ×2 (09:33→21:03)
[2016-10-14] MEDS: Vancomycin 1250mg/D5W 275ml IVPB SCH ×4 (09:33→17:00)
[2016-10-14] MEDS: Solu-MEDROL 125mg Inj IV SCH ×2 (09:33→21:03)
[2016-10-14] MEDS: Pantoprazole Inj IV SCH (09:33)
[2016-10-14 10:44] LABS: BAND NEUTROPHILS % (MANUAL) 7 % (0-8); BASOPHILS % (MANUAL) 0 % (0-2); EOSINOPHILS % (MANUAL) 0 % (0-3); LYMPHOCYTES % (MANUAL) 6 % (20-45); NEUTROPHILS % (MANUAL) 82 % (45-75); PLATELET ESTIMATE ADEQUATE; PLATELET MORPHOLOGY NORMAL; TOTAL CELLS COUNTED 100
[2016-10-14 10:45] LABS: ANISOCYTOSIS 1+; HYPOCHROMASIA 1+
--- NOTE | 2016-10-14 10:53 | Pulmonolgy Critical Care Note ---
Critical Care - Asmt/Plan Problems: (1) Acute respiratory failure (2) Angioedema (3) CAD (coronary artery disease) Respiratory: monitor respiratory rate Cardiac: continue to monitor HR/BP Renal: F/U I&O, decrease IV fluid, check electrolytes Infectious Disease: check cultures, continue antibiotics Gastrointestinal: continue feedings/current rate - increae TV to 700 Endocrine: monitor blood sugar, continue sliding scale insulin Hematologic: monitor H/H Neurologic: PRN Ativan, PRN Morphine, keep patient comfortable Affect: PRN ativan Notes Reviewed: cardio, renal, ID Discussed with: nurses, consultants, shelter case managersenior marketing manager - Objective Last 24 Hour Vital Signs Date Time Temp Pulse Resp B/P Pulse Ox O2 Delivery O2 Flow Rate FiO2 10/14/16 09:33 139/62 10/14/16 08:48 106 16 50 10/14/16 08:00 105 10/14/16 08:00 50 10/14/16 06:56 101 19 50 10/14/16 06:00 99 17 114/54 100 Mechanical Ventilator 50 10/14/16 05:39 99 120/61 10/14/16 05:00 96 16 120/61 100 Mechanical Ventilator 50 10/14/16 04:50 96 18 50 10/14/16 04:00 50 10/14/16 04:00 97.7 95 17 130/71 100 Mechanical Ventilator 50 10/14/16 04:00 95 10/14/16 03:15 89 18 50 10/14/16 03:00 93 17 125/64 100 Mechanical Ventilator 50 10/14/16 02:00 90 18 124/69 100 Mechanical Ventilator 50 10/14/16 01:10 85 17 50 10/14/16 01:00 96.6 85 17 123/67 100 Mechanical Ventilator 50 10/14/16 00:02 84 134/72 10/14/16 00:00 83 17 125/67 100 Mechanical Ventilator 50 10/14/16 00:00 83 10/14/16 00:00 50 10/13/16 23:25 88 17 50 10/13/16 23:00 90 18 134/72 100 Mechanical Ventilator 50 10/13/16 22:00 89 17 128/75 100 Mechanical Ventilator 50 10/13/16 21:15 91 18 50 10/13/16 21:00 92 18 139/81 100 Mechanical Ventilator 50 10/13/16 20:00 93 10/13/16 20:00 96.5 93 17 137/79 100 Mechanical Ventilator 50 10/13/16 20:00 50 10/13/16 19:40 94 18 50 10/13/16 19:00 96.7 99 18 138/71 100 Mechanical Ventilator 50 10/13/16 18:00 134/67 10/13/16 18:00 96.4 98 18 139/61 100 Mechanical Ventilator 50 10/13/16 17:20 98 18 50 10/13/16 17:00 97.7 99 18 139/58 100 Mechanical Ventilator 50 10/13/16 16:00 50 10/13/16 16:00 100 10/13/16 16:00 98.6 100 22 139/67 100 Mechanical Ventilator 50 10/13/16 15:28 112 20 50 10/13/16 15:17 114 148/67 10/13/16 15:00 99.6 115 23 151/60 100 Mechanical Ventilator 50 10/13/16 14:00 99.6 116 23 146/75 100 Mechanical Ventilator 50 10/13/16 13:25 117 27 50 10/13/16 13:02 130 167/75 10/13/16 13:02 167/76 10/13/16 13:00 101.0 121 22 161/67 100 Mechanical Ventilator 50 10/13/16 12:00 119 10/13/16 12:00 101.4 121 24 141/56 100 Mechanical Ventilator 50 10/13/16 12:00 50 10/13/16 11:00 120 24 50 10/13/16 11:00 101.9 120 29 139/56 100 Mechanical Ventilator 50 Status: awake Condition: critical HEENT: atraumatic Neck: full ROM Lungs: chest wall tender Heart: HR/BP stable Abdomen: soft, non-tender Extremities: no C/C/E, edema Micro: Microbiology Date/Time Source Procedure Growth Status 10/12/16 19:15 Blood Blood Culture - Preliminary NO GROWTH AFTER 24 HOURS Resulted 10/12/16 19:15 Blood Blood Culture - Preliminary NO GROWTH AFTER 24 HOURS Resulted 10/13/16 05:00 Sputum Gram Stain Pending Resulted 10/13/16 05:00 Sputum Sputum Culture - Preliminary NO GROWTH AFTER 24 HOURS Resulted 10/12/16 19:15 Urine,Clean Catch Urine Culture - Final NO GROWTH AFTER 48 HOURS Complete Accucheck: 149 Critical Care - Subjective ROS Limited/Unobtainable: No ICU Day: 3 Intubation Day: 3 Interval Events: not triggering the vent, dolls eyes positive, Condition: critical EKG Rhythm: Sinus Rhythm FI02: 50 Vent Support Breath Rate: 16 Vent Support Mode: AC Vent Tidal Volume: 600 Sputum Amount: Scant PEEP: 8.0 PIP: 40 Fluids: ns 125 cc/hour Tube Feeding Amount: 30 I&O: Intake and Output 10/13/16 10/14/16 19:00 07:00 Intake Total 2558.416 ml 2000 ml Output Total 1130 ml 790 ml Balance 1428.416 ml 1210 ml Intake Free Water 300 ml 200 ml IV Total 2238.416 ml 1490 ml Tube Feeding 20 ml 310 ml Output Urine Total 1130 ml 790 ml CXR: Left lung collapse ET-Tube: 6.0 ET Position: 17 Labs: Laboratory Tests Test 10/13/16 11:00 10/13/16 16:18 10/14/16 00:30 10/14/16 05:00 Urine Color Pale yellow Urine Appearance Slightly cloudy Urine pH 5 (4.5-8.0) Urine Specific [place] 1.015 (1.005-1.035) Urine Protein 2+ (NEGATIVE) H Urine Glucose (UA) Negative (NEGATIVE) Urine Ketones Negative (NEGATIVE) Urine Occult Blood 4+ (NEGATIVE) H Urine Nitrite Negative (NEGATIVE) Urine Bilirubin Negative (NEGATIVE) Urine Urobilinogen Normal MG/DL (0.0-1.0) Urine Leukocyte Esterase Negative (NEGATIVE) Urine RBC 10-15 /HPF (0 - 0) H Urine WBC 0-2 /HPF (0 - 0) Urine Squamous Epithelial Cells Occasional /LPF Urine Uric Acid Crystals Few /LPF (NONE) H Urine Bacteria Few /HPF (NONE) Urine Eosinophils None seen Urine Osmolality Pending Urine Random Sodium 37 mmol/L Urine Random Chloride 46 mmol/L Urine Potassium Timed 39 mmol/L Plasma/Serum Osmolality Pending Uric Acid 6.3 mg/dL (3.0-7.5) Total Creatine Kinase 3672 U/L (38-174) H Thyroid Stimulating Hormone (TSH) 1.120 uIU/mL (0.300-4.500) Free Thyroxine 1.09 ng/dL (0.86-1.85) Free Triiodothyronine 2.1 pg/mL (2.0-4.4) Cortisol 5.0 ug/dL (.) Arterial Blood pH 7.356 (7.350-7.450) Arterial Blood Partial Pressure CO2 38.5 mmHg (35.0-45.0) Arterial Blood Partial Pressure O2 95.7 mmHg (75.0-100.0) Arterial Blood HCO3 21.1 mmol/L (22.0-26.0) L Arterial Blood Oxygen Saturation 96.3 % (92.0-98.0) Arterial Blood Base Excess -4.0 Jet Test Positive Vancomycin Level Trough 5.6 ug/mL (5.0-12.0) White Blood Count 18.9 K/UL (4.8-10.8) H Red Blood Count 3.22 M/UL (4.70-6.10) L Hemoglobin 9.9 G/DL (14.2-18.0) L Hematocrit 32.1 % (42.0-52.0) L Mean Corpuscular Volume 100 FL (80-99) H Mean Corpuscular Hemoglobin 30.9 PG (27.0-31.0) Mean Corpuscular Hemoglobin Concent 31.0 G/DL (32.0-36.0) L Red Cell Distribution Width 15.2 % (11.6-14.8) H Platelet Count 153 K/UL (150-450) Mean Platelet Volume 8.0 FL (6.5-10.1) Neutrophils (%) (Auto) % (45.0-75.0) Lymphocytes (%) (Auto) % (20.0-45.0) Monocytes (%) (Auto) % (1.0-10.0) Eosinophils (%) (Auto) % (0.0-3.0) Basophils (%) (Auto) % (0.0-2.0) Differential Total Cells Counted 100 Neutrophils % (Manual) 82 % (45-75) H Lymphocytes % (Manual) 6 % (20-45) L Monocytes % (Manual) 5 % (1-10) Eosinophils % (Manual) 0 % (0-3) Basophils % (Manual) 0 % (0-2) Band Neutrophils 7 % (0-8) Platelet Estimate Adequate Platelet Morphology Normal Hypochromasia 1+ Anisocytosis 1+ Sodium Level 140 mEQ/L (135-145) Potassium Level 5.2 mEQ/L (3.4-4.9) H Chloride Level 104 mEQ/L (98-107) Carbon Dioxide Level 25 mEQ/L (20-30) Anion Gap 11 (5-15) Blood Urea Nitrogen 18 mg/dL (7-23) Creatinine 1.0 mg/dL (0.7-1.2) Estimat Glomerular Filtration Rate > 60 mL/min (>60) Glucose Level 167 mg/dL (74-106) H Calcium Level 7.7 mg/dL (8.6-10.2) L Phosphorus Level 3.2 mg/dL (2.5-4.8) Magnesium Level 2.0 mg/dL (1.7-2.5) Total Bilirubin 0.3 mg/dL (0.0-1.2) Aspartate Amino Transf (AST/SGOT) 104 U/L (5-40) H Alanine Aminotransferase (ALT/SGPT) 45 U/L (3-41) H Alkaline Phosphatase 42 U/L (40-129) Total Protein 6.4 g/dL (6.6-8.7) L Albumin 3.1 g/dL (3.5-5.2) L Globulin 3.3 g/dL Albumin/Globulin Ratio 0.9 (1.0-2.7) L Test 10/14/16 08:55 Arterial Blood pH 7.290 (7.350-7.450) Arterial Blood Partial Pressure CO2 53.0 mmHg (35.0-45.0) H Arterial Blood Partial Pressure O2 89.0 mmHg (75.0-100.0) Arterial Blood HCO3 25.0 mmol/L (22.0-26.0) Arterial Blood Oxygen Saturation 95.0 % (92.0-98.0) Arterial Blood Base Excess -2.4 Jet Test Positive THEO DONOHUE October 14, 2016 10:53
[2016-10-14] MEDS ORDERED: NS 275ml ONE (10:56)
[2016-10-14] MEDS ORDERED: Tubing IV Secondary IV ONE (10:56)
[2016-10-14 12:46] LABS: ABG ALLEN TEST POSITIVE; ABG BASE EXCESS -0.9
--- NOTE | 2016-10-14 13:51 | Emergency Room Report ---
History of Present Illness General Chief Complaint: Allergic Reaction Source: Patient Present Illness Allergies: Coded Allergies: LACTOSE (Verified Allergy, Intermediate, 09/30/16) Lactose intolerant LISINOPRIL (Verified Adverse Reaction, Severe, Angioedema, 10/13/16) Nursing Documentation-[facility] Past Medical History Deferred: Patient Unconscious Past Medical History: No History, Except For Hx Cardiac Problems: Yes - STENT Hx Hypertension: Yes Hx Pacemaker: No Hx Asthma: No Hx COPD: No Hx Diabetes: Yes Hx Cancer: No Hx Gastrointestinal Problems: Yes - Alcholic Hx Dialysis: No Hx Neurological Problems: No Hx Seizures: No Hx Dizziness: Yes - occassional dizziness Physical Exam Vital Signs Date Time Temp Pulse Resp B/P Pulse Ox O2 Delivery O2 Flow Rate FiO2 10/11/16 20:13 98.4 88 15 161/77 100 Room Air 10/12/16 00:36 100 10/12/16 08:00 15.0 Procedures CPR/Code Blue CPR/Code Blue Narrative I was called upstairs to a CODE BLUE Upon arrival the patient has a heart rate of 85 Respirations on the ventilator at 16 I was notified that during the sleep apnea study Patient bradyed down and had a asystolic finding Patient did not have any further medications given and regained his pulses On general evaluation patient appears edematous The patient's airway appears to be the initial airway from the emergency room No obvious crepitus Patient saturation at 96% on the ventilator After a general secondary evaluation patient's care is handed back to the flat sorting machine clerk Cardiopulmonary arrest Medical Decision Making Diagnostic Impression: Primary Impression: Cardiac arrest Last Vital Signs Date Time Temp Pulse Resp B/P Pulse Ox O2 Delivery O2 Flow Rate FiO2 10/14/16 12:34 97 20 50 10/14/16 12:00 120/54 100 Mechanical Ventilator 10/14/16 08:00 98.3 10/12/16 08:00 15.0 Disposition: ADMITTED INPATIENT Condition: Critical Referrals: [facility],REFERRING (PCP) MARK PRAKASH D.O. October 14, 2016 13:51
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
[2016-10-14] MEDS: Thiamine HCl 100 MG in D5W 55 ML IVPB SCH (16:00)
[2016-10-15] VITALS (24 sets, daily range): BP systolic 119–157; BP diastolic 55–89
[2016-10-15] MEDS: Vancomycin 1250mg/D5W 275ml IVPB SCH ×4 (01:06→09:01)
[2016-10-15] MEDS: Metoprolol 5mg/5ml Inj IVP PRN (01:17)
[2016-10-15 05:47] LABS: MEAN CORPUSCULAR HEMOGLOBIN 30.9 PG (27.0-31.0); MEAN CORPUSCULAR HGB CONC 31.1 G/DL (32.0-36.0); MEAN CORPUSCULAR VOLUME 99 FL (80-99); MEAN PLATELET VOLUME 8.3 FL (6.5-10.1); PLATELET COUNT 216 K/UL (150-450); RED BLOOD COUNT 3.54 M/UL (4.70-6.10); RED CELL DISTRIBUTION WIDTH 14.8 % (11.6-14.8)
[2016-10-15 05:49] LABS: WHITE BLOOD COUNT 23.3 K/UL (4.8-10.8)
[2016-10-15] MEDS: Metoprolol 25mg tab ORAL SCH ×2 (06:01→12:10)
[2016-10-15] MEDS: NovoLOG Insulin Flexpen SUBQ SCH ×2 (06:04→12:11)
[2016-10-15 06:10] LABS: ALANINE AMINOTRANSFERASE 51 U/L (3-41); ALBUMIN/GLOBULIN RATIO 0.9 (1.0-2.7); ANION GAP 16 (5-15); ASPARTATE AMINO TRANSFERASE 108 U/L (5-40); CALCIUM 8.6 mg/dL (8.6-10.2); CARBON DIOXIDE 22 mEQ/L (20-30); CHLORIDE 103 mEQ/L (98-107); GLOMERULAR FILTRATION RATE > 60 mL/min (>60); HEMOLYSIS 5; PHOSPHORUS 3.4 mg/dL (2.5-4.8); POTASSIUM 4.3 mEQ/L (3.4-4.9); SODIUM 141 mEQ/L (135-145); TOTAL PROTEIN 6.9 g/dL (6.6-8.7)
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
[2016-10-15 08:15] LABS: ABG PCO2 37.9 mmHg (35.0-45.0)
[2016-10-15 08:19] LABS: ABG ALLEN TEST POSITIVE
[2016-10-15] MEDS: Minoxidil 2.5mg tab ORAL SCH (09:00)
[2016-10-15] MEDS: levETIRAcetam 500 MG in D5W 110 ML IV SCH ×2 (09:00→21:19)
[2016-10-15] MEDS: Pantoprazole Inj IV SCH (09:00)
[2016-10-15] MEDS: Solu-MEDROL 125mg Inj IV SCH (09:01)
[2016-10-15] MEDS ORDERED: Tubing IV Secondary IV ONE ×2 (09:31→09:57)
[2016-10-15 10:00] LABS: BAND NEUTROPHILS % (MANUAL) 4 % (0-8); BASOPHILS % (MANUAL) 0 % (0-2); EOSINOPHILS % (MANUAL) 0 % (0-3); LYMPHOCYTES % (MANUAL) 5 % (20-45); MACROCYTES 1+; NEUTROPHILS % (MANUAL) 83 % (45-75); NUCLEATED RED BLOOD CELLS 1 /100 WBC; PLATELET ESTIMATE ADEQUATE; PLATELET MORPHOLOGY NORMAL; TOTAL CELLS COUNTED 100
[2016-10-15 10:01] LABS: ANISOCYTOSIS 1+; POIKILOCYTOSIS 1+
[2016-10-15] MEDS ORDERED: NS 275ml ONE (10:02)
--- NOTE | 2016-10-15 10:31 | Pulmonolgy Critical Care Note ---
Critical Care - Asmt/Plan Problems: (1) Acute respiratory failure (2) Hypoxemic encephalopathy (3) CAD (coronary artery disease) (4) Angioedema Respiratory: monitor respiratory rate, adjust FIO2, CXR, ABG, weaning trial, other - pt unstable for bronchoscopy, Cardiac: continue to monitor HR/BP Renal: F/U I&O, keep IV fluid, check electrolytes Infectious Disease: check cultures, continue antibiotics Gastrointestinal: hold feedings - not tolerating feeding Endocrine: monitor blood sugar, continue sliding scale insulin Hematologic: monitor H/H, transfuse if hgb<8.5 Neurologic: PRN Ativan, PRN Morphine, keep patient comfortable Affect: PRN ativan Prophylaxis: Heparin Disposition: keep in ICU Notes Reviewed: tool and die repair, cardio, renal Discussed with: nurses, consultants, case management managermanager people - Objective Last 24 Hour Vital Signs Date Time Temp Pulse Resp B/P Pulse Ox O2 Delivery O2 Flow Rate FiO2 10/15/16 10:00 95 15 141/79 79 Mechanical Ventilator 100 10/15/16 09:07 96 25 100 10/15/16 09:00 93 25 137/82 88 Mechanical Ventilator 100 10/15/16 09:00 141/75 10/15/16 08:00 100 10/15/16 08:00 97.5 99 21 144/75 92 Mechanical Ventilator 100 10/15/16 08:00 102 10/15/16 07:29 102 18 100 10/15/16 07:00 103 21 144/76 96 Mechanical Ventilator 100 10/15/16 06:01 113 129/76 10/15/16 06:00 104 21 133/77 96 Mechanical Ventilator 100 10/15/16 05:22 116 19 70 10/15/16 05:00 98.4 115 18 137/77 97 Mechanical Ventilator 70 10/15/16 04:00 117 10/15/16 04:00 70 10/15/16 04:00 100.4 116 21 128/87 96 Mechanical Ventilator 70 10/15/16 03:08 100.4 10/15/16 03:03 115 23 100 10/15/16 03:00 116 21 150/81 96 Mechanical Ventilator 80 10/15/16 02:00 112 22 157/81 95 Mechanical Ventilator 100 10/15/16 01:29 103 22 100 10/15/16 01:17 120 157/89 10/15/16 01:00 120 22 157/89 95 Mechanical Ventilator 100 10/15/16 00:00 107 10/15/16 00:00 60 10/15/16 00:00 79.4 114 22 140/77 95 Mechanical Ventilator 60 10/14/16 23:55 110 154/80 10/14/16 23:23 106 19 60 10/14/16 23:00 105 21 144/84 95 Mechanical Ventilator 50 10/14/16 22:00 98 22 140/83 97 Mechanical Ventilator 50 10/14/16 21:00 99 20 141/83 99 Mechanical Ventilator 50 10/14/16 20:56 101 19 50 10/14/16 20:00 100 10/14/16 20:00 94 10/14/16 20:00 97.2 98 22 140/83 97 Mechanical Ventilator 50 10/14/16 19:10 94 21 100 10/14/16 19:00 95 20 131/61 99 Mechanical Ventilator 100 10/14/16 18:00 114 129/42 10/14/16 18:00 110 20 141/51 99 Mechanical Ventilator 100 10/14/16 17:00 105 19 131/61 100 Mechanical Ventilator 100 10/14/16 16:38 114 20 100 17 16:00 100 10/14/16 16:00 105 10/14/16 16:00 97.2 100 19 136/42 99 Mechanical Ventilator 100 10/14/16 15:00 100 19 129/42 99 Mechanical Ventilator 50 10/14/16 14:35 107 20 100 17 14:00 100 20 121/61 100 Mechanical Ventilator 50 10/14/16 13:00 98.5 99 20 127/54 100 Mechanical Ventilator 50 10/14/16 12:34 97 20 50 17 12:00 94 10/14/16 12:00 100 131/56 10/14/16 12:00 97 20 120/54 100 Mechanical Ventilator 50 10/14/16 12:00 50 10/14/16 11:00 96 20 120/54 100 Mechanical Ventilator 50 17 10:50 97 16 50 Status: obtunded Condition: critical HEENT: atraumatic Neck: full ROM Lungs: rales Heart: HR/BP stable, HR/BP unstable Abdomen: soft, non-tender, feeding tube Extremities: edema Decubiti: location Micro: Microbiology Date/Time Source Procedure Growth Status 10/12/16 19:15 Blood Blood Culture - Preliminary NO GROWTH AFTER 48 HOURS Resulted 10/12/16 19:15 Blood Blood Culture - Preliminary NO GROWTH AFTER 48 HOURS Resulted 10/13/16 05:00 Sputum Gram Stain - Final Complete 10/13/16 05:00 Sputum Sputum Culture - Final NORMAL UPPER RESPIRATORY LAMINE PRESENT Complete 10/12/16 19:15 Urine,Clean Catch Urine Culture - Final NO GROWTH AFTER 48 HOURS Complete Accucheck: 115 Critical Care - Subjective ROS Limited/Unobtainable: No ICU Day: 4 Intubation Day: 4 Condition: critical EKG Rhythm: Sinus Rhythm FI02: 100 Vent Support Breath Rate: 16 Vent Support Mode: AC Vent Tidal Volume: 700 Sputum Amount: Small PEEP: 8.0 PIP: 59 Tube Feeding Amount: 30 I&O: Intake and Output 10/14/16 10/15/16 19:00 07:00 Intake Total 2364.670 ml 973.333 ml Output Total 1730 ml 1325 ml Balance 634.670 ml -351.667 ml Intake Free Water 200 ml IV Total 1804.670 ml 783.333 ml Tube Feeding 360 ml 160 ml Other 30 ml Output Urine Total 1730 ml 1325 ml # Bowel Movements 3 CXR: Left sided collapse slightly better ET-Tube: 6.0 ET Position: 17 Labs: Laboratory Tests Test 10/14/16 12:34 10/15/16 04:20 10/15/16 08:00 10/15/16 08:15 Arterial Blood pH 7.370 (7.350-7.450) 7.400 (7.350-7.450) Arterial Blood Partial Pressure CO2 44.0 mmHg (35.0-45.0) 37.9 mmHg (35.0-45.0) Arterial Blood Partial Pressure O2 89.0 mmHg (75.0-100.0) 45.7 mmHg (75.0-100.0) Arterial Blood HCO3 25.0 mmol/L (22.0-26.0) 23.4 mmol/L (22.0-26.0) Arterial Blood Oxygen Saturation 96.0 % (92.0-98.0) 78.7 % (92.0-98.0) L Arterial Blood Base Excess -0.9 -1.0 Jet Test Positive Positive White Blood Count 23.3 K/UL (4.8-10.8) *H Red Blood Count 3.54 M/UL (4.70-6.10) L Hemoglobin 10.9 G/DL (14.2-18.0) L Hematocrit 35.1 % (42.0-52.0) L Mean Corpuscular Volume 99 FL (80-99) Mean Corpuscular Hemoglobin 30.9 PG (27.0-31.0) Mean Corpuscular Hemoglobin Concent 31.1 G/DL (32.0-36.0) L Red Cell Distribution Width 14.8 % (11.6-14.8) Platelet Count 216 K/UL (150-450) Mean Platelet Volume 8.3 FL (6.5-10.1) Neutrophils (%) (Auto) % (45.0-75.0) Lymphocytes (%) (Auto) % (20.0-45.0) Monocytes (%) (Auto) % (1.0-10.0) Eosinophils (%) (Auto) % (0.0-3.0) Basophils (%) (Auto) % (0.0-2.0) Differential Total Cells Counted 100 Neutrophils % (Manual) 83 % (45-75) H Lymphocytes % (Manual) 5 % (20-45) L Monocytes % (Manual) 8 % (1-10) Eosinophils % (Manual) 0 % (0-3) Basophils % (Manual) 0 % (0-2) Band Neutrophils 4 % (0-8) Nucleated Red Blood Cells 1 /100 WBC Platelet Estimate Adequate Platelet Morphology Normal Poikilocytosis 1+ Anisocytosis 1+ Macrocytosis 1+ Sodium Level 141 mEQ/L (135-145) Potassium Level 4.3 mEQ/L (3.4-4.9) Chloride Level 103 mEQ/L (98-107) Carbon Dioxide Level 22 mEQ/L (20-30) Anion Gap 16 (5-15) H Blood Urea Nitrogen 25 mg/dL (7-23) H Creatinine 1.0 mg/dL (0.7-1.2) Estimat Glomerular Filtration Rate > 60 mL/min (>60) Glucose Level 122 mg/dL (74-106) H Calcium Level 8.6 mg/dL (8.6-10.2) Phosphorus Level 3.4 mg/dL (2.5-4.8) Magnesium Level 2.0 mg/dL (1.7-2.5) Total Bilirubin 0.4 mg/dL (0.0-1.2) Aspartate Amino Transf (AST/SGOT) 108 U/L (5-40) H Alanine Aminotransferase (ALT/SGPT) 51 U/L (3-41) H Alkaline Phosphatase 55 U/L (40-129) Total Protein 6.9 g/dL (6.6-8.7) Albumin 3.4 g/dL (3.5-5.2) L Globulin 3.5 g/dL Albumin/Globulin Ratio 0.9 (1.0-2.7) L Vancomycin Level Trough 16.3 ug/mL (5.0-12.0) H THEO DONOHUE October 15, 2016 10:31
--- NOTE | 2016-10-15 12:55 | Neurology Progress Note ---
Interim History Interim History ROS Limited/Unobtainable: No Complaints: coma Events: second full arrest last nite Objective Physical Exam Last Vital Signs Date Time Temp Pulse Resp B/P Pulse Ox O2 Delivery O2 Flow Rate FiO2 10/15/16 12:10 98 146/74 10/15/16 12:00 96.8 19 77 Mechanical Ventilator 100 10/12/16 08:00 15.0 Laboratory Tests Test 10/15/16 04:20 10/15/16 08:00 10/15/16 08:15 White Blood Count 23.3 K/UL (4.8-10.8) *H Red Blood Count 3.54 M/UL (4.70-6.10) L Hemoglobin 10.9 G/DL (14.2-18.0) L Hematocrit 35.1 % (42.0-52.0) L Mean Corpuscular Volume 99 FL (80-99) Mean Corpuscular Hemoglobin 30.9 PG (27.0-31.0) Mean Corpuscular Hemoglobin Concent 31.1 G/DL (32.0-36.0) L Red Cell Distribution Width 14.8 % (11.6-14.8) Platelet Count 216 K/UL (150-450) Mean Platelet Volume 8.3 FL (6.5-10.1) Neutrophils (%) (Auto) % (45.0-75.0) Lymphocytes (%) (Auto) % (20.0-45.0) Monocytes (%) (Auto) % (1.0-10.0) Eosinophils (%) (Auto) % (0.0-3.0) Basophils (%) (Auto) % (0.0-2.0) Differential Total Cells Counted 100 Neutrophils % (Manual) 83 % (45-75) H Lymphocytes % (Manual) 5 % (20-45) L Monocytes % (Manual) 8 % (1-10) Eosinophils % (Manual) 0 % (0-3) Basophils % (Manual) 0 % (0-2) Band Neutrophils 4 % (0-8) Nucleated Red Blood Cells 1 /100 WBC Platelet Estimate Adequate Platelet Morphology Normal Poikilocytosis 1+ Anisocytosis 1+ Macrocytosis 1+ Sodium Level 141 mEQ/L (135-145) Potassium Level 4.3 mEQ/L (3.4-4.9) Chloride Level 103 mEQ/L (98-107) Carbon Dioxide Level 22 mEQ/L (20-30) Anion Gap 16 (5-15) H Blood Urea Nitrogen 25 mg/dL (7-23) H Creatinine 1.0 mg/dL (0.7-1.2) Estimat Glomerular Filtration Rate > 60 mL/min (>60) Glucose Level 122 mg/dL (74-106) H Calcium Level 8.6 mg/dL (8.6-10.2) Phosphorus Level 3.4 mg/dL (2.5-4.8) Magnesium Level 2.0 mg/dL (1.7-2.5) Total Bilirubin 0.4 mg/dL (0.0-1.2) Aspartate Amino Transf (AST/SGOT) 108 U/L (5-40) H Alanine Aminotransferase (ALT/SGPT) 51 U/L (3-41) H Alkaline Phosphatase 55 U/L (40-129) Total Protein 6.9 g/dL (6.6-8.7) Albumin 3.4 g/dL (3.5-5.2) L Globulin 3.5 g/dL Albumin/Globulin Ratio 0.9 (1.0-2.7) L Arterial Blood pH 7.400 (7.350-7.450) Arterial Blood Partial Pressure CO2 37.9 mmHg (35.0-45.0) Arterial Blood Partial Pressure O2 45.7 mmHg (75.0-100.0) Arterial Blood HCO3 23.4 mmol/L (22.0-26.0) Arterial Blood Oxygen Saturation 78.7 % (92.0-98.0) L Arterial Blood Base Excess -1.0 Jet Test Positive Vancomycin Level Trough 16.3 ug/mL (5.0-12.0) H General: other - intubated, obese,no pressors, fluctuating SBP overbreathing vent grymasing to pain Head: atraumatic Neck: no rigidity, other - rigid Neurologic Exam Mental Status: other - coma no responce to painex grymasing Speech: other Language: other Cranial Nerve II: other Cranial Nerves III, IV, : other - P 3mm sluggish aom fixed Cranial Nerve V: other - no corneal Cranial Nerve VII: no facial asymmetry Cranial Nerve VIII: other Cranial Nerve IX: other - no gag Cranial Nerve XI: other Cranial Nerve XII: other Motor System: other - flaccid, no involuntary movement Sensory: other Coordination: other Deep Tendon Reflexes: 0 ankle (L), 0 ankle (R), 0 bicep (L), 0 bicep (R), 0 brachioradialis (L), 0 brachioradialis (R), 0 knee (L), 0 knee (R), 0 tricep (L) , 0 tricep (R) Reflexes: mute plantar (L), mute plantar (R) Impression/Recommendations Problems: (1) post anoxic encephalopathy (2) s/p respiratory arrest (3) Angioedema (4) Acute respiratory failure (5) CAD (coronary artery disease) Status: unchanged, deteriorating Recommendations # [id number] EEG burst suppression pattern neuro -no change CT brain hold 2/2 unstable hemodyn. prognosis very poor -no neuro recovery expected WAI DE LUNA October 15, 2016 12:55
[2016-10-15] MEDS ORDERED: Artificial Tears 1.4% Op Soln BOTH EYES PRN ×2 (15:15→22:00)
[2016-10-15] MEDS ORDERED: Haloperidol 5mg/ml Inj IM PRN ×2 (15:15→21:45)
[2016-10-15] MEDS ORDERED: Prochlorperazine 10mg tab ORAL PRN ×2 (15:15→22:00)
[2016-10-15] MEDS ORDERED: Glycopyrrolate 0.2mg/ml 1ml Vial IV PRN ×2 (15:15→22:00)
[2016-10-15] MEDS ORDERED: PCA Morphine 1mg/ml 30 ML IV PRN ×2 (15:30→22:00)
[2016-10-15] MEDS ORDERED: Rate Change Narcotic Drip MISC PRN ×2 (15:30→22:00)
[2016-10-15] MEDS ORDERED: Morphine Sulfate 10mg/ml Inj IVP ONE (15:30)
[2016-10-15] MEDS ORDERED: Morphine Sulfate 4mg/ml Inj SUBQ PRN ×2 (15:45→21:45)
[2016-10-15] MEDS ORDERED: Narcotic Shift Volume MISC SCH (19:00)
[2016-10-15] MEDS ORDERED: LORazepam Inj 2mg/ml 1ml IV PRN (22:00)
[2016-10-16 00:12] VITALS: BP 114/56
[2016-10-16] MEDS ORDERED: NS Irrig 1000ml ONE (00:44)
[2016-10-16] MEDS ORDERED: Narcotic Shift Volume MISC SCH (07:00)
[2016-10-16] MEDS ORDERED: levETIRAcetam 500 MG in D5W 110 ML IV SCH (09:00)
[2016-10-16] MEDS ORDERED: Pantoprazole Inj IV SCH (09:00)
[2016-10-16] MEDS ORDERED: Dyna-Hex 2% Top Sol 8oz TOPIC SCH ×2 (09:00)
== END 2016-10-16 00:45 | disposition expired | DRG 121 ==
LOC: ENRESERVTM → ENRESERV → ENRESERVDT → EMR 21:03 → ICU 21:10 → EDBEDREQSVC 10-12 01:21 → EDBEDREQ 10-12 06:27 → 4W 10-15 21:36
PROC: 0BH17EZ Insertion of Endotracheal Airway into Trachea, Via Natural or Artificial Opening (ICD-10-PCS; principal; 2016-10-12)
PROC: 0BB10ZZ Excision of Trachea, Open Approach (ICD-10-PCS; 2016-10-12)
PROC: 0W3Q0ZZ Control Bleeding in Respiratory Tract, Open Approach (ICD-10-PCS; 2016-10-12)
PROC: 5A1945Z Respiratory Ventilation, 24-96 Consecutive Hours (ICD-10-PCS; 2016-10-12)
PROC: 06HM33Z Insertion of Infusion Device into Right Femoral Vein, Percutaneous Approach (ICD-10-PCS; 2016-10-12)
PROC: 30233K1 Transfusion of Nonautologous Frozen Plasma into Peripheral Vein, Percutaneous Approach (ICD-10-PCS; 2016-10-12)
DX: J96.00 Acute respiratory failure, unspecified whether with hypoxia or hypercapnia (principal); I46.9 Cardiac arrest, cause unspecified; J69.0 Pneumonitis due to inhalation of food and vomit; G93.1 Anoxic brain damage, not elsewhere classified; A41.9 Sepsis, unspecified organism; T78.3XXA Angioneurotic edema, initial encounter; Z93.0 Tracheostomy status; J95.830 Postprocedural hemorrhage of a respiratory system organ or structure following a respiratory system procedure; I25.10 Atherosclerotic heart disease of native coronary artery without angina pectoris; I10 Essential (primary) hypertension; Z95.5 Presence of coronary angioplasty implant and graft; E11.52 Type 2 diabetes mellitus with diabetic peripheral angiopathy with gangrene; Z79.84 Long term (current) use of oral hypoglycemic drugs; E66.01 Morbid (severe) obesity due to excess calories; Z68.41 Body mass index [BMI] 40.0-44.9, adult; T46.4X5A Adverse effect of angiotensin-converting-enzyme inhibitors, initial encounter; Y92.098 Other place in other non-institutional residence as the place of occurrence of the external cause; K43.9 Ventral hernia without obstruction or gangrene; F10.10 Alcohol abuse, uncomplicated
CPT/HCPCS: 36415; 36600; 71010; 76775; 80053; 80202; 81001; 82436; 82533; 82550; 82803; 82962; 83735; 83930; 83935; 84100; 84133; 84300; 84439; 84443; 84481; 84484; 84550; 85007; 85025; 85610; 85730; 86850; 86900; 86901; 86927; 87040; 87070; 87086; 87205; 89050; 92950; 93005; 93970; 94002; 94003; 94640; 94664; 95819; J0171; J1815; J2405